=== PATIENT | female | born 1990 | race Hispanic/Latino ===

== ENCOUNTER 2021-10-03 13:14 | Day surgery (SDC) | payer OTHER ==
[2021-10-03 13:47] VITALS: BMI 51.7
== END 2021-10-03 15:19 | disposition home health service (06) ==
LOC: CSHLD/OP 13:14
PROVIDERS: ATTEND Family Medicine
DX: O36.8930 Maternal care for other specified fetal problems, third trimester, not applicable or unspecified (principal); Z3A.36 36 weeks gestation of pregnancy; Z91.040 Latex allergy status; Z79.899 Other long term (current) drug therapy
CPT/HCPCS: 76819

== ENCOUNTER 2021-10-06 10:53 | Inpatient (IN) | payer MEDICAID, OTHER ==
[2021-10-06] MEDS ORDERED: hydrALAZINE 20 MG/ML VIAL SLOW IVP PRN (12:00)
[2021-10-06] MEDS ORDERED: Butorphanol Tartrate 1 MG/ML VIAL SLOW IVP PRN (12:00)
[2021-10-06] MEDS ORDERED: Promethazine HCl 25 MG/ML VIAL IM PRN ×2 (12:00→22:59)
[2021-10-06] MEDS ORDERED: HYDROcodone/Acetaminophen 5/325 mg Tablet PO PRN (12:00)
[2021-10-06] MEDS ORDERED: Misoprostol 200 MCG TAB PR PRN (12:00)
[2021-10-06] MEDS ORDERED: NS w/ Oxytocin 30 units 500 ML IV SCH ×2 (12:00)
[2021-10-06] MEDS ORDERED: Ondansetron PF 4 MG/2 ML Vial IVP PRN ×2 (12:00→22:59)
[2021-10-06] MEDS ORDERED: Carboprost 250 MCG/ML AMP IM PRN (12:00)
[2021-10-06] MEDS ORDERED: NS w/ Oxytocin 30 units 500 ML IVPB SCH (12:00)
[2021-10-06] MEDS ORDERED: Ibuprofen 800 MG TAB PO PRN (12:00)
[2021-10-06] MEDS ORDERED: Lidocaine 1% (PF) 30 ML VIAL SC PRN (12:00)
[2021-10-06] MEDS ORDERED: Diphenoxylate HCl/Atropine Tablet PO PRN (12:00)
[2021-10-06 12:58] LABS: ALT (SGPT) 16 U/L (8-55); AST (SGOT) 19 U/L (5-34); Albumin 2.9 g/dL (3.5-5.0); Alkaline Phosphatase 249 U/L (40-110); Anion Gap 13 mmol/L (10-20); BUN (Urea Nitrogen) 10 mg/dL (7.0-18.7); Bilirubin, Total 0.2 mg/dL (0.2-1.2); Calc. Creatinine Clearance 0 mL/min (70-130); Calcium 8.5 mg/dL (7.8-10.44); Carbon Dioxide 18 mmol/L (22-29); Chloride 109 mmol/L (98-107); Globulin 3.1 g/dL (2.4-3.5); Glucose 71 mg/dL (70-105); Sodium 136 mmol/L (136-145)
[2021-10-06 12:58] LABS: Hemoglobin 10.5 g/dL (12.0-15.5); Mean Corpuscular HGB CONC 31.3 g/dL (32.0-36.0); Mean Corpuscular Hemoglobin 24.6 pg (27.0-33.0); Mean Corpuscular Volume 78.5 fl (81.6-98.3); Mean Platelet Volume 12.2 fl (7.4-10.4); Platelet Count 193 10x3/uL (150-450); RBC Distribution Width 14.9 % (11.5-14.5); Red Blood Cell (RBC) Count 4.27 10x6/uL (3.90-5.03); White Blood Cell (WBC) Count 9.1 10x3/uL (3.5-10.5)
[2021-10-06 13:16] LABS: Syphilis Antibody Nonreactive (Nonreactive); Syphilis Antibody Index 0.04 S/CO (<1.00 Non-Reactive)
[2021-10-06 13:22] LABS: Hep B Surf Ag Non-Reactive S/CO (NonReactive)
[2021-10-06 13:29] VITALS: BMI 52.1
[2021-10-06 14:24] LABS: SARS-CoV-2 NAA Rapid Test Not Detected (NotDetected)
[2021-10-06] MEDS ORDERED: Misoprostol 100 MCG TAB ONE (14:26)
[2021-10-06] MEDS ORDERED: Penicillin G Potassium 5 MILL.UNITS VIAL ONE (14:27)
[2021-10-06] MEDS: Lactated Ringer's 1,000 ML IV SCH (14:36)
[2021-10-06] MEDS ORDERED: Magnesium Sulfate 20 gm/500 ml 20 GM/500 ML BAG ONE (16:23)
[2021-10-06] MEDS ORDERED: Calcium Gluc 4.6 MEQ/10 ML (100 MG/ML) SLOW IVP PRN (16:28)
[2021-10-06] MEDS ORDERED: Penicillin G Potassium 5 MILL.UNITS in Sodium Chloride 0.9% 100 ML IVPB SCH (17:00)
[2021-10-06] MEDS ORDERED: Magnesium Sulfate 20 GM/WATER 500 ML BAG IVPB SCH (17:00)
[2021-10-06] MEDS: Misoprostol 100 MCG TAB PO SCH ×2 (17:05→21:13)
[2021-10-06] MEDS: Penicillin G 2.5 MILL.units 2.5 MILL.UNITS in Premix Bag 1 BAG IVPB SCH ×2 (19:06→23:30)
[2021-10-06] MEDS: Acetaminophen 500 MG TAB PO PRN (21:17)
[2021-10-06] MEDS ORDERED: Fentanyl 2 mcg/Bup 0.1% Cadd 100 ML ONE (21:59)
[2021-10-06] MEDS ORDERED: Hydrocerin (Eucerin) Cream 120 gm Jar TOP PRN (22:59)
[2021-10-06] MEDS ORDERED: diphenhydrAMINE 50 MG/ML VIAL IVP PRN (22:59)
[2021-10-06] MEDS ORDERED: Lactated Ringer's 500 ML IV PRN (22:59)
[2021-10-06] MEDS ORDERED: Naloxone HCl 0.4 mg/ml Vial IVP PRN ×2 (22:59)
[2021-10-06] MEDS ORDERED: ePHEDrine Sulfate 50 MG/10 ML VIAL SLOW IVP PRN (22:59)
[2021-10-06] MEDS ORDERED: Acetaminophen 325 MG TAB PO PRN (22:59)
[2021-10-06] MEDS ORDERED: Communication Order-Pharmacy FS SCH (23:00)
[2021-10-06] MEDS: Fentanyl 2 mcg/Bupivacaine 0.1% Cassette 100 ML EPIDURAL SCH (23:56)
[2021-10-07] MEDS: Magnesium Sulfate 20 gm/500 ml 20 GM/500 ML BAG IVPB SCH ×3 (00:04→19:58)
[2021-10-07] MEDS: Lactated Ringer's 1,000 ML IV SCH ×4 (00:05→18:12)
[2021-10-07] MEDS: Misoprostol 100 MCG TAB PO SCH ×3 (01:57→19:57)
[2021-10-07] MEDS: Penicillin G 2.5 MILL.units 2.5 MILL.UNITS in Premix Bag 1 BAG IVPB SCH ×5 (03:32→19:59)
[2021-10-07] MEDS: Acetaminophen 500 MG TAB PO PRN ×3 (05:37→20:53)
[2021-10-07] MEDS: hydrALAZINE 20 MG/ML VIAL SLOW IVP PRN ×2 (14:12→15:44)
[2021-10-07] MEDS: Fentanyl 2 mcg/Bupivacaine 0.1% Cassette 100 ML EPIDURAL SCH (16:47)
[2021-10-07 21:52] LABS: Magnesium 6.4 mg/dL (1.6-2.6)
[2021-10-07] MEDS ORDERED: Calcium Carbonate 500 MG ChewTAB PO PRN (22:07)
[2021-10-07] MEDS: Misoprostol 100 MCG TAB VAG SCH (22:43)
[2021-10-08] MEDS: Penicillin G 2.5 MILL.units 2.5 MILL.UNITS in Premix Bag 1 BAG IVPB SCH ×3 (00:53→09:30)
[2021-10-08] MEDS: Misoprostol 100 MCG TAB VAG SCH ×2 (02:26→06:49)
[2021-10-08] MEDS: hydrALAZINE 20 MG/ML VIAL SLOW IVP PRN ×6 (02:26→08:36)
[2021-10-08] MEDS: Fentanyl 2 mcg/Bupivacaine 0.1% Cassette 100 ML EPIDURAL SCH (02:56)
[2021-10-08] MEDS: Acetaminophen 500 MG TAB PO PRN (04:58)
[2021-10-08 06:15] LABS: Magnesium 6.4 mg/dL (1.6-2.6)
[2021-10-08] MEDS ORDERED: PHENYLEPHRINE-NS 100 MCG/ML 10 ML SYRINGE ONE (11:41)
[2021-10-08] MEDS ORDERED: Lidocaine 2% MPF 10 ML AMP (For Epidural Use) ONE (11:41)
[2021-10-08] MEDS ORDERED: Oxytocin 10 UNITS/ML VIAL ONE (11:41)
[2021-10-08] MEDS ORDERED: Ondansetron PF 4 MG/2 ML Vial ONE (11:41)
[2021-10-08] MEDS ORDERED: Lidocaine 2% PF 5 ML VIAL FS PRN (12:00)
[2021-10-08] MEDS ORDERED: Tranexamic Acid 1,000 MG/10 ML VIAL ONE (12:01)
[2021-10-08] MEDS ORDERED: Carboprost 250 MCG/ML AMP ONE (12:02)
[2021-10-08] MEDS ORDERED: Misoprostol 200 MCG TAB ONE (12:02)
[2021-10-08] MEDS ORDERED: Bicitra 30 ML UDCUP PO PRN (12:04)
[2021-10-08] MEDS ORDERED: Famotidine/PF 20 mg/2ml Vial SLOW IVP PRN (12:04)
[2021-10-08] MEDS ORDERED: Famotidine/PF 20 mg/2ml Vial ONE (12:08)
[2021-10-08] MEDS ORDERED: CEFAZOLIN 3 GM in Premix Bag 1 BAG IVPB SCH (12:15)
[2021-10-08] MEDS ORDERED: Morphine PF 10 MG/10 ML VIAL ONE (12:16)
[2021-10-08] MEDS ORDERED: PROPOFOL 20 ML ONE (12:16)
[2021-10-08] MEDS ORDERED: CEFAZOLIN 2 GM in Sodium Chloride 0.9% 100 ML IVPB SCH (12:30)
[2021-10-08] MEDS ORDERED: CEFAZOLIN 1 GM in Sodium Chloride 0.9% 100 ML IVPB SCH (12:30)
[2021-10-08] MEDS ORDERED: CEFAZOLIN 2 GM in Premix Bag 1 BAG IVPB SCH (12:30)
[2021-10-08] MEDS ORDERED: ePHEDrine Sulfate 50 MG/10 ML VIAL ONE (13:02)
[2021-10-08] MEDS ORDERED: Bupivacaine 0.25% HCL 30 ML VIAL ONE (13:17)
[2021-10-08] MEDS ORDERED: Ketorolac Tromethamine 30 MG/ML VIAL ONE (13:23)
[2021-10-08] MEDS ORDERED: Simethicone Chewable 80 MG TAB PO PRN (14:00)
[2021-10-08] MEDS ORDERED: Ondansetron PF 4 MG/2 ML Vial IVP PRN ×2 (14:00→14:05)
[2021-10-08] MEDS ORDERED: Bisacodyl 10 MG SUPP PR PRN (14:00)
[2021-10-08] MEDS ORDERED: NS w/ Oxytocin 30 units 500 ML IV SCH (14:00)
[2021-10-08] MEDS ORDERED: Promethazine HCl 25 MG/ML VIAL IM PRN ×2 (14:00→14:05)
[2021-10-08] MEDS ORDERED: Boostrix 0.5 ML (Tdap) VIAL IM ONE (14:00)
[2021-10-08] MEDS ORDERED: hydrALAZINE 20 MG/ML VIAL SLOW IVP PRN (14:00)
[2021-10-08] MEDS ORDERED: Calcium Gluconate 4.6 MEQ in Sodium Chloride 0.9% 100 ML IVPB PRN (14:00)
[2021-10-08] MEDS ORDERED: diphenhydrAMINE 25 MG CAP PO PRN (14:00)
[2021-10-08] MEDS ORDERED: Magnesium Sulfate 20 gm/500 ml 20 GM/500 ML BAG IVPB SCH (14:00)
[2021-10-08] MEDS ORDERED: Meperidine HCl/PF 25 MG/ML VIAL IM PRN (14:00)
[2021-10-08] MEDS ORDERED: Ondansetron HCl/PF 4 MG/2 ML Vial IVP PRN (14:05)
[2021-10-08] MEDS ORDERED: HYDROmorphone 2 MG/ML VIAL SLOW IVP PRN (14:05)
[2021-10-08] MEDS ORDERED: Meperidine HCl/PF 25 MG/ML VIAL SLOW IVP PRN (14:05)
[2021-10-08] MEDS ORDERED: Fentanyl 100 MCG/2 ML VIAL SLOW IVP PRN (14:05)
[2021-10-08] MEDS ORDERED: diphenhydrAMINE 50 MG/ML VIAL IVP PRN (14:05)
[2021-10-08] MEDS ORDERED: Promethazine HCl 25 MG SUPP PR PRN (14:05)
[2021-10-08] MEDS ORDERED: Hydrocerin (Eucerin) Cream 120 gm Jar TOP PRN (14:05)
[2021-10-08] MEDS ORDERED: Ketorolac Tromethamine 30 MG/ML VIAL IVP PRN (14:05)
[2021-10-08] MEDS ORDERED: Naloxone HCl 0.4 mg/ml Vial IVP PRN ×2 (14:05)
[2021-10-08] MEDS ORDERED: Naloxone HCl 0.4 mg/ml Vial IV PRN (14:05)
[2021-10-08] MEDS ORDERED: Ketorolac Tromethamine 30 MG/ML VIAL IVP SCH (14:15)
[2021-10-08] MEDS ORDERED: Communication Order-Pharmacy FS SCH (14:15)
[2021-10-08] MEDS ORDERED: Meperidine HCl/PF 25 MG/ML VIAL ONE (14:18)
[2021-10-08] MEDS ORDERED: hydrALAZINE 20 MG/ML VIAL ONE (14:34)
[2021-10-08 15:05] LABS: Magnesium 6.9 mg/dL (1.6-2.6)
[2021-10-08 17:35] LABS: HIV (1/2) Antibody/Antigen Non-Reactive (NonReactive)
[2021-10-08] MEDS: Docusate Calcium (SURFAK) 240 MG CAP PO SCH (22:42)
[2021-10-09 05:41] LABS: Hemoglobin 10.2 g/dL (12.0-15.5); Mean Corpuscular HGB CONC 31.5 g/dL (32.0-36.0); Mean Corpuscular Hemoglobin 24.8 pg (27.0-33.0); Mean Corpuscular Volume 78.6 fl (81.6-98.3); Mean Platelet Volume 12.3 fl (7.4-10.4); Platelet Count 212 10x3/uL (150-450); RBC Distribution Width 15.7 % (11.5-14.5); Red Blood Cell (RBC) Count 4.12 10x6/uL (3.90-5.03); White Blood Cell (WBC) Count 9.1 10x3/uL (3.5-10.5)
[2021-10-09] MEDS: Ketorolac Tromethamine 30 MG/ML VIAL IVP SCH ×2 (06:32→07:47)
[2021-10-09] MEDS: HYDROcodone/Acetaminophen 5/325 mg Tablet PO PRN ×2 (07:47→20:53)
[2021-10-09] MEDS ORDERED: Losartan Potassium 50 MG TAB PO SCH (14:00)
[2021-10-09] MEDS: Ferrous Sulfate 325 MG TAB PO SCH ×2 (20:20→21:36)
[2021-10-09] MEDS: Prenatal Vitamin 1 TAB PO SCH (20:20)
[2021-10-09] MEDS: Ibuprofen 800 MG TAB PO SCH ×2 (20:20→20:53)
[2021-10-09] MEDS: Docusate Calcium (SURFAK) 240 MG CAP PO SCH ×2 (20:20→20:54)
[2021-10-09] MEDS: Lactated Ringer's 1,000 ML IV SCH (20:28)
[2021-10-09] MEDS: Penicillin G 2.5 MILL.units 2.5 MILL.UNITS in Premix Bag 1 BAG IVPB SCH (20:28)
[2021-10-09] MEDS: Misoprostol 100 MCG TAB VAG SCH (21:40)
[2021-10-10] MEDS: HYDROcodone/Acetaminophen 5/325 mg Tablet PO PRN ×5 (01:08→21:54)
[2021-10-10] MEDS: Ibuprofen 800 MG TAB PO SCH ×3 (04:56→21:52)
[2021-10-10] MEDS: Ferrous Sulfate 325 MG TAB PO SCH ×2 (07:31→23:30)
[2021-10-10] MEDS: Prenatal Vitamin 1 TAB PO SCH (08:41)
[2021-10-10] MEDS: Docusate Calcium (SURFAK) 240 MG CAP PO SCH ×2 (08:41→21:52)
[2021-10-10] MEDS ORDERED: Losartan Potassium 50 MG TAB PO SCH (09:00)
[2021-10-10] MEDS ORDERED: cloNIDine 0.1 MG TAB PO PRN ×2 (14:06→14:07)
[2021-10-11] MEDS: Ibuprofen 800 MG TAB PO SCH ×2 (06:34→14:09)
[2021-10-11] MEDS: Ferrous Sulfate 325 MG TAB PO SCH (07:35)
[2021-10-11] MEDS: Prenatal Vitamin 1 TAB PO SCH (08:21)
[2021-10-11] MEDS: Docusate Calcium (SURFAK) 240 MG CAP PO SCH (08:21)
[2021-10-11] MEDS ORDERED: Losartan Potassium 50 MG TAB PO SCH (09:00)
[2021-10-11 12:02] VITALS: BP 135/62; TEMP 98.1
[2021-10-11] MEDS: HYDROcodone/Acetaminophen 5/325 mg Tablet PO PRN (14:11)
== END 2021-10-11 17:15 | disposition home or self-care (01) | DRG 787 ==
LOC: CSHLD 10:53 → CSHPP 10-09 15:55
PROVIDERS: ADMIT Family Medicine; ATTEND Family Medicine
PROC: 10D00Z1 Extraction of Products of Conception, Low, Open Approach (ICD-10-PCS; principal; 2021-10-08)
DX: O14.14 Severe pre-eclampsia complicating childbirth (principal); O98.82 Other maternal infectious and parasitic diseases complicating childbirth; Z20.822 Contact with and (suspected) exposure to COVID-19; O61.9 Failed induction of labor, unspecified; Z3A.37 37 weeks gestation of pregnancy; Z37.0 Single live birth; O99.214 Obesity complicating childbirth; E66.01 Morbid (severe) obesity due to excess calories; B95.1 Streptococcus, group B, as the cause of diseases classified elsewhere; O64.0XX0 Obstructed labor due to incomplete rotation of fetal head, not applicable or unspecified; O69.81X0 Labor and delivery complicated by cord around neck, without compression, not applicable or unspecified
CPT/HCPCS: 36415; 76815; 80053; 82570; 83735; 84156; 85027; 86780; 86850; 86900; 86901; 87340; 87389; J0360; J1885; J2175; J2274; J2405; J2540; J2590; J2704; J3475; J3490; J7120; S0020; S0028; U0002